=== PATIENT | female | born 1985 | race Caucasian/White ===

== ENCOUNTER → 2016-07-14 | Outpatient (CLI) | payer OTHER ==
[2016-05-03 17:02] VITALS: BP 110/74
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
== END ==
LOC: RAD 15:48
PROVIDERS: ATTEND Internal Medicine
DX: S49.81XD Other specified injuries of right shoulder and upper arm, subsequent encounter (principal)
CPT/HCPCS: 73030

== ENCOUNTER 2016-10-24 13:21 | Emergency (ER) | payer SELFPAY ==
[2016-10-24 13:22] VITALS: BP 110/74
[2016-10-24 13:38] VITALS: BMI 35.4
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
--- NOTE | 2016-10-24 16:46 | CT ---
HISTORY: left facial swelling Study: CT facial bones without contrast Comparison: None Technique: Multiple axial images of the facial bones from the level above the frontal sinuses through the matilda ble and reconstructed at 2 mm intervals without contrast . Automated dose control was used. Findings: The frontal sinuses are clear. The orbits are intact. The zygomatic arches are intact. The nasal bon e is intact and and good position. There is mild mucosal thickening throughout the ethmoid, sphenoid , and maxillary sinuses which is more prominent in the left maxillary antrum with no air-fluid leve ls. The mandible is intact and in good position. The visualized intracranial and orbital contents ar e unremarkable. There is moderate edema and stranding in the subcutaneous soft tissues along the lef t supraorbital region laterally extending along the lateral aspect of the orbit and along the zygoma and laterally along the zygomatic arch with inferior extension along the left maxilla. The globe is intact. There is a metallic ring along the tongue anteriorly. IMPRESSION: Moderate left periorbital hematoma with no obvious fracture seen. Chronic sinusitis which is most prominent along the left maxillary antrum with no air-fluid levels. Reported By:
[2016-10-24] MEDS ORDERED: FIORICET TAB PO ONE ×2 (16:56→16:57)
== END 2016-10-24 17:13 | disposition home or self-care (01) ==
LOC: ER 13:21
DX: S05.10XA Contusion of eyeball and orbital tissues, unspecified eye, initial encounter (principal); S00.83XA Contusion of other part of head, initial encounter; S00.33XA Contusion of nose, initial encounter; X58.XXXA Exposure to other specified factors, initial encounter; Y92.9 Unspecified place or not applicable
CPT/HCPCS: 70486; 99283

== ENCOUNTER 2017-08-09 11:21 | Emergency (ER) | payer OTHER ==
[2017-08-09 11:27] VITALS: BP 110/70; BMI 32.8
--- NOTE | 2017-08-09 14:02 | DR.URIAD ---
HPI - Time Seen Time seen: 14:00 - PCP Primary Care Physician: suzan - HPI Comment HPI Comment: HAVING HEADACHE AND NASAL AND POST NASAL DRAINAGE. NO FEVER. CHEST PAIN AND SOB THAT IS INCREASING. NON PRESCRIPTION MEDS SO FAR NOT HELPING. - Complaint Chief Complaint Doctors Comments: COUGH, CONGESTION, SOB TIMES ONE WEEK. Chief Complaint:: patient stated since last weeked she has been coughing having a runny nose and her nose is stopped up. 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 - Family History History of Family Medical Conditions: Yes Family Medical History: Diabetes Mellitus, Cancer, Hypertension - Social History Does patient currently use any type of tobacco product: Yes Have you used tobacco products in the last 12 months: Yes Type of Tobacco Use: Cigars How many years tobacco product used: 1 Does any household member use tobacco: Yes Alcohol Use: Occasionally Do you use any recreational Drugs:: No Lives With: Family Lives Where: Home - infectious screening In the last 2 months have you had wt loss of >10#?: NO Have you had fever, night sweats or hemotysis?: No Have you traveled outside the country in the last 6 months?: No Isolation: Standard ROS - Review of Systems Constitutional: Weakness, Fatigue. negative: Chills, Fever Eyes: No Symptoms Reported. negative: Eye Pain, Discharge ENTM: Nose Discharge, Nose Congestion. negative: Ear Pain, Throat Pain Respiratoy: Productive Cough, Short of Breath. negative: Wheezing, Hemoptysis Cardiovascular: Chest Pain (PLEURITIC CHEST PAIN.) Gastrointestinal/Abdominal: No Symptoms Reported Genitourinary: No Symptoms Reported Neurological: No Symptoms Reported Musculoskeletal: No Symptoms Reported Integumentary: No Symptoms Reported Hematologic/Lymphatic: No Symptoms Reported Endocrine: No Symptoms Reported All Other Systems: Reviewed and Negative PE - Vital Signs Vitals: Temperature 97.7 F Pulse Rate 79 Respiratory Rate 16 Blood Pressure [Left Arm] 102/53 Blood Pressure 110/70 O2 Sat by Pulse Oximetry 98 - General Limitations: No Limitations General Appearance: Alert - Head Head Exam: Normal Inspection - Eyes Eye exam: Normal Appearance - ENT ENT Exam: Normal External Ear Exam TM/Canal Exam: Bilateral Bulging Nose Exam: Normal Nose Exam Mouth Exam: Normal Inspection Throat Exam: Tonsillar Erythema. negative: Tonsillomegaly, Tonsillar Exudate - Neck Neck Exam: Trachea Midline - Chest Chest Inspection: Symmetric Chest Wall Rise - Respiratory Respiratory Exam: Normal Lung Sounds Bilat Respiratory Exam: Bilateral Rhonchi, Lower Rhonchi - Cardiovascular Cardiovascular Exam: Regular Rate, Normal Rhythm, Normal Heart Sounds - Abdominal Exam Abdominal Exam: Normal Bowel Sounds, Soft. negative: Tenderness - Extremeties Extremities Exam: Normal Inspection - Back Back Exam: Normal Inspection - Neurologic Neurological Exam: Alert, Oriented X3. negative: Motor Sensory Deficit - Psychiatric Psychiatric Exam: Normal Affect, Normal Mood - Skin Skin Exam: Normal Color MDM - Differential Diagnosis Differential Diagnosis: Otitis media, Streptococcal pharyngitis, Viral pharyngitis, Pneumonia, Sinsusitis, URI Course - Treatment Treatment: SEE ORDER. - Education/Counseling Education/Counseling: Patient, Education Educated On: Diagnosis, Needs for Follow Up ROR - XRAY XRAY Interpreted by: Radiologist XRAY Findings: REPORT DISCUSS WITH PATIENT. - Diagnosis Discharge Problem: Bronchitis Sinusitis Qualifiers: Sinusitis location: unspecified location Chronicity: unspecified Qualified Code (s): J32.9 - Chronic sinusitis, unspecified - Discharge Plan Disposition: 01 HOME, SELF-CARE Condition: Stable Prescriptions: Amoxicillin [Amoxil 875 mg] 875 mg PO Q12H #20 tab Cetirizine HCl [Zyrtec Tab 10 mg] 10 mg PO DAILY #30 tab Promethazine W/Codeine [PHENERGAN W/CODEINE 6.25mg/10mg (5mL) *] 5 ml PO Q6H PRN #120 ml PRN Reason: Cough - Follow ups/Referrals Follow ups/Referrals: Tobias ANNE [Primary Care Provider] - 1 day - Instructions Instructions: Sinusitis, Adult, [id number], Acute Bronchitis, Adult, Easy-to- Read Additional Instructions: RETURN TO ED IF WORSE.
--- NOTE | 2017-08-09 14:34 | RAD ---
HISTORY: Cough, shortness of breath Study: PA and lateral views of the chest Comparison:None Findings: No infiltrate, effusion or pneumothorax identified. The cardiac and mediastinal contours are within n ormal limits. The soft tissues are unremarkable. IMPRESSION: 1. No acute cardiopulmonary abnormality. Reported By:
== END 2017-08-09 14:45 | disposition home or self-care (01) ==
LOC: ER 11:35
DX: J40 Bronchitis, not specified as acute or chronic (principal); J32.9 Chronic sinusitis, unspecified
CPT/HCPCS: 71046; 99282